=== PATIENT | male | born 1950 | race Caucasian/White ===

== ENCOUNTER → 2021-12-11 10:38 | Outpatient (CLI) | payer MEDICARE, OTHER, SELFPAY ==
--- NOTE | 2021-12-11 10:47 | DI.MRI.S_ITS ---
PROCEDURE: MR CERVICAL SPINE WO CON INDICATIONS: RADICULOPATHY CERVICAL REGION TECHNIQUE: Noncontrast sagittal T1 spin echo and T2 fast spin echo, sagittal STIR, foraminal oblique sagittal T2 fast spin echo, and axial gradient echo or T2 fast spin echo through the cervical spine. COMPARISON: None. FINDINGS: Image quality: Excellent. Alignment and Curvature: There is normal bony alignment. Bone Marrow: Marrow demonstrates normal overall signal. Spinal Cord: Visualized spinal cord has normal size and signal. No cerebellar tonsillar herniation. Paraspinous Soft Tissues: No paravertebral masses. Prevertebral soft tissues are normal in thickness. C2-C3: Normal appearance. C3-C4: Disc height is preserved. Mild thickening of the posterior longitudinal ligament present without central stenosis. Moderate left and mild right foraminal stenosis. C4-C5: Disc height is preserved. Small posterior disc osteophyte complex associated mild stenosis central stenosis. Moderate left and no right foraminal stenosis C5-C6: Disc space narrowing with posterior disc osteophyte complex and hypertrophic uncovertebral joints results in moderate central stenosis with flattening the ventral surface of the cord. Moderate bilateral foraminal stenosis present. C6-C7: Disc space narrowing with posterior disc osteophyte complex results in mild central stenosis. Mild left and no right foraminal stenosis C7-T1: Normal appearance. IMPRESSION: Multilevel degenerative disc disease and arthropathy results in varying degrees of central and foraminal stenosis including moderate central stenosis C5-6 with flattening the ventral surface of the cord Approved by: Vineet Garcia M.D. on 12/11/2021 at 14:06
== END ==
PROVIDERS: PCP Family Medicine; Referring Provider Family Medicine; Visit Provider Family Medicine
DX: M50.11 Cervical disc disorder with radiculopathy, high cervical region (principal); M47.22 Other spondylosis with radiculopathy, cervical region; M48.02 Spinal stenosis, cervical region
CPT/HCPCS: 72141

== ENCOUNTER → 2024-10-14 08:34 | Outpatient (CLI) | payer MEDICARE, OTHER, SELFPAY ==
--- NOTE | 2024-10-14 08:36 | DI.RAD.S_ITS ---
PROCEDURE: XR CERVICAL SPINE 4V OR 5V INDICATIONS: NECK PAIN TECHNIQUE: 5 views of the cervical spine acquired. COMPARISON: None. FINDINGS: Bones: Straightening of normal cervical lordosis is seen. Loss of disc height, degenerative endplate changes and bilateral facet hypertrophic changes are noted throughout cervical spine more notably at C5-6 and C6-7 levels. There is 2 millimeter anterolisthesis of C4 on C5.. Oblique images demonstrate no bony foraminal stenoses. Soft tissues: No prevertebral soft tissue swelling. Oblique views shows right worse than left bilateral bony foraminal stenosis at C5-6 level. IMPRESSION: [id number] spondylitic changes throughout cervical spine with right worse than left bilateral bony foraminal stenosis seen at C5-6 level. 2 millimeter anterolisthesis of C4 on C5. No acute cervical spine fracture or dislocation. Dictated by: Humphrey Nesbitt M.D. on 10/14/2024 at 9:23 Approved by: Humphrey Nesbitt M.D. on 10/14/2024 at 9:29
== END ==
PROVIDERS: PCP Family Medicine; Referring Provider Physical Medicine & Rehabilitation; Visit Provider Physical Medicine & Rehabilitation
DX: M48.02 Spinal stenosis, cervical region (principal); M43.12 Spondylolisthesis, cervical region; M54.2 Cervicalgia
CPT/HCPCS: 72050

== ENCOUNTER 2024-12-07 08:42 | Outpatient (CLI) | payer MEDICARE, OTHER, SELFPAY ==
[2024-12-07 10:00] VITALS: BP 137/65; PULSE 60; RESP 16; TEMP 36.8; O2SAT 97
[2024-12-07 10:24] VITALS: BP 134/70; PULSE 60; RESP 17; O2SAT 99
[2024-12-07] MEDS: LIDOCAINE 1% (PF) 5 ML INJ (10:29)
[2024-12-07 10:34] VITALS: BP 138/70; PULSE 68; RESP 16; O2SAT 98
--- NOTE | 2024-12-07 12:57 | PM.PROC.IR.1 ---
Date/Time/Diagnoses Date of procedure: 10/12/24 Time of procedure: 10:00 Pre-procedure diagnosis: Cervicothoracic radiculopathy Post-procedure diagnosis: same Procedure Notes Procedure: Interlaminar epidural steroid injection C7-T1 Indications: Cervicothoracic radiculopathy Physician: Maury Hopson Total sedation minutes: 0 Complications: none Procedure in detail & Post-procedure care: Patient is here for the planned procedure today as noted. No significant change since the last office visit. For additional clinical scenario please see those office notes. Focused exam: Vital signs reviewed as charted on intake. Gen: Well developed. No acute distress. CV: RRR, no M/R/G Chest: Non-labored breathing, CTAB. Psych: Alert and well-oriented. Mood/Affect: normal. Patient suitable for the planned procedure today: Yes === The following procedure was performed in the office today: Cervical Epidural Steroid Injection with fluoroscopic guidance - Interlaminar approach (87592) Levels Treated: C7-T1 Approach: interlaminar Soft tissue: [1% lidocaine 2 mL] Test dose: 1% lidocaine 1 mL Injectate: [1.5 mL dexamethasone (10mg/mL), 1 mL lidocaine 1%, 1.5 mL normal saline] Fluoroscopy Agent: Isovue 300-M 1.5 mL Notes: 3.5 in 20 gauge Touhy needle utilized end adequate. Left paramedian approach. History NIDDM, recent A1c 6.3. Procedure: After discussing the risks, benefits, and alternatives to the procedure, the patient expressed understanding and wished to proceed. The risks include but are not limited to infection, allergic reaction, nerve damage, stroke, paralysis, epidural hematoma, syncope, headache, respiratory or cardiac arrest, spinal cord injury, and scar formation. Informed consent was obtained and all patient questions were answered. The patient was brought to the procedure suite and placed in the prone position. A pre-procedural pause was conducted to verify: correct patient identity, procedure to be performed and as applicable, correct side and site, correct patient position, and any special requirements. Using a paramedian approach from the side noted above, the region overlying the target was localized under fluoroscopic visualization and the soft tissues overlying this structure were infiltrated with the anesthetic listed above. With fluoroscopic guidance, a #20 gauge Tuohy needle (unless otherwise noted) was inserted into the epidural space using a paramedian approach. The epidural space was localized utilizing intermittent multiplanar fluoroscopic guidance and loss of resistance technique. After negative aspiration, the contrast noted above was injected into the epidural space and the flow of contrast was observed, confirming epidural spread without evidence of intravascular or intrathecal spread. Multi-planar radiographs were obtained for documentation purposes. A test dose of lidocaine was given and the patient was observed for 30-60 seconds. There were no adverse reactions noted. Subsequently, the injectate as noted above was administered into the level noted above. The patient tolerated the procedure well and was discharged after an appropriate period of observation. If there are any complications, the patient was instructed to call us. The patient is to follow-up with the requesting provider in 2-3 weeks/as planned. This note was compiled using voice recognition software and therefore may contain typos. Please contact the author with any questions or concerns.
== END 2024-12-07 10:40 | disposition home or self-care (01) ==
PROVIDERS: PCP Family Medicine; Referring Provider Physical Medicine & Rehabilitation; Visit Provider Physical Medicine & Rehabilitation
DX: M54.13 Radiculopathy, cervicothoracic region (principal)
CPT/HCPCS: 62321; J1100